=== PATIENT | male | born 1990 ===

== ENCOUNTER 2023-01-23 08:16 | Emergency (ER) | payer OTHER, BC ==
[2023-01-23 08:37] VITALS: BP 144/78; PULSE 100; RESP 20; TEMP 98.6; BMI 28.8
[2023-01-23] MEDS ORDERED: IBUPROFEN 400 MG TABLET (FP) PO ONE ×3 (09:03→09:05)
[2023-01-23] MEDS ORDERED: LIDOCAINE 5% TOPICAL PATCH TP ONE (09:17)
[2023-01-23] MEDS ORDERED: LIDOCAINE PATCH REMOVAL MC SCH (22:00)
== END 2023-01-23 10:08 | disposition home or self-care (01) ==
LOC: JER 08:16
DX: S39.012A Strain of muscle, fascia and tendon of lower back, initial encounter (principal); X50.9XXA Other and unspecified overexertion or strenuous movements or postures, initial encounter; Y92.481 Parking lot as the place of occurrence of the external cause; Y99.0 Civilian activity done for income or pay
CPT/HCPCS: 99283-25